=== PATIENT | female | born 1975 | race Caucasian/White ===

== ENCOUNTER 2019-11-17 12:08 | Emergency (ER) | payer BC, OTHER ==
[~2019-11-17] VITALS: Ht 170.2 cm; Wt 75.0 kg
--- NOTE | 2019-11-17 12:26 | ED Hip Pain/Injury ---
General Chief Complaint: Upper Extremity Stated Complaint: LEFT ARM INJ Nursing Triage Note: Pt amb to triage with c/o L wrist discomfort. 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 Pt reports intermittent numbness/tingling followed by sharp pain to L wrist. Pt displays ability to move L wrist and wiggle distal fingers. Cap refill <3 seconds with present radial pulse. Denies further injury. A&OX4. Source: patient Exam Limitations: no limitations History of Present Illness Date Seen by Provider: Nov 17, 2019 Time Seen by Provider: 12:25 Initial Comments To ER with left wrist pain after a fall when she slipped on wet grass 30 minutes prior to arrival. Timing/Duration: just prior to arrival Severity: moderate Location: other (left wrist) Method of Injury: fell Modifying Factors: Worse With Movement Allergies and Home Medications Allergies Coded Allergies: No Known Drug Allergies (Unverified , 11/17/19) Patient Home Medication List Home Medication List Reviewed: Yes Review of Systems Constitutional: see HPI EENTM: see HPI Respiratory: no symptoms reported Cardiovascular: no symptoms reported Genitourinary: no symptoms reported Musculoskeletal: see HPI Skin: no symptoms reported Psychiatric/Neurological: No Symptoms Reported Past Enjbkqz-Scrlmt-Hpdlot Hx Patient Social History Recent Foreign Travel: No Contact w/Someone Who Travel: No Recent Infectious Disease Expo: No Physical Exam Vital Signs Vital Signs - First Documented 11/17/19 12:15 Temp 36.9 Pulse 105 Resp 17 B/P (MAP) 144/95 (111) Pulse Ox 100 O2 Delivery Room Air Capillary Refill : Less Than 3 Seconds Height, Weight, BMI Height: '" Weight: lbs. oz. kg; 25.00 BMI Method: General Appearance: No Apparent Distress, WD/WN Neck: Full Range of Motion, Normal Inspection Respiratory: Normal Breath Sounds, No Accessory Muscle Use, No Respiratory Distress Gastrointestinal: Non Tender, Soft Extremity: Other (brisk capillary refill of the fingertips, there is pain without obvious deformity to the left wrist.) Neurologic/Psychiatric: Alert, Oriented x3 Skin: Normal Color, Warm/Dry Progress/Results/Core Measures Results/Orders My Orders Orders - BERNARDO STERLING APRN Hydrocodone/Apap 5/325 Tablet (Lortab 5 (11/17/19 12:30) Wrist, Left, 3 Views Or More (11/17/19 12:23) Forearm, Left, 2 Views (11/17/19 13:00) Medications Given in ED Current Medications Medications Dose Ordered Sig/Alice Route Start Time Stop Time Status Last Admin Dose Admin Acetaminophen/ Hydrocodone Bitart 1 tab ONCE ONCE PO 11/17/19 12:30 11/17/19 12:31 DC 11/17/19 12:28 1 TAB Vital Signs/I&O 11/17/19 12:15 Temp 36.9 Pulse 105 Resp 17 B/P (MAP) 144/95 (111) Pulse Ox 100 O2 Delivery Room Air Blood Pressure Mean: 111 Departure Communication (Admissions) She is able to supinate and pronate which would not support a diagnosis of radial ulnar dislocation Impression Primary Impression: Wrist sprain Qualified Codes: S63.502A - Unspecified sprain of left wrist, initial encounter Disposition: HOME, SELF-CARE Condition: Stable Departure-Patient Inst. Decision time for Depature: 12:45 Referrals: LEONARD HANDLEY DO (PCP) Primary Care Physician Patient Instructions: Wrist Sprain (DC) Add. Discharge Instructions: 1. Will splint as needed for comfort 2. Follow-up with your doctor this week as he may wish to refer you to orthopedics 3. Tylenol and pain control. If you have persistent pain into next week and MRI may be helpful to evaluate for a small fracture not seen on x-ray All discharge instructions reviewed with patient and/or family. Voiced understanding. BERNARDO STERLING APRN Nov 17, 2019 12:26
[2019-11-17] MEDS ORDERED: HYDROcodone/APAP 5 MG/325 MG (LORTAB) TAB PO ONE (12:30)
--- NOTE | 2019-11-17 12:55 | Diagnostic Imaging Report ---
INDICATION: Pain, injury. COMPARISON: None available. TECHNIQUE: Three radiographs of the left wrist dated November 17, 2019. FINDINGS: No acute fracture. The distal ulna is posteriorly positioned in relationship to the distal radius on the lateral radiograph. Carpal alignment is well maintained. Scapholunate distance is within normal limits. No suspicious radiopaque foreign body. IMPRESSION: Distal ulna is slightly posteriorly positioned in relationship to the distal radius. This may relate to subluxation of the distal radioulnar joint, though this may simply be positional in nature. Recommend correlation with physical examination and pain. Otherwise, unremarkable examination. Dictated by: Dictated on workstation # [id number]
--- NOTE | 2019-11-17 13:17 | Diagnostic Imaging Report ---
INDICATION: Fall. TIME OF EXAM: 1:10 p.m. FINDINGS: Two views of the left forearm were obtained. Alignment at the elbow and wrist appears normal. The radius and ulna appear to be intact. No fractures are seen. There is no dislocation. IMPRESSION: No acute bony abnormality is detected. Dictated by: Dictated on workstation # [id number]
[2019-11-17 13:30] VITALS: BP 144/95
--- OUTSIDE RECORDS SUMMARY | 2019-11-21 15:38 | XMS REPORT | Continuity of Care Document ---
Author Organization Unknown Address Unknown Phone Unavailable Allergies Active Description Code Type Severity Reaction Onset Reported/Identified Relationship to Patient Clinical Status Yes No Known Drug Allergies [id number] Drug Allergy Unknown N/A 11/17/2019 Medications There is no data. Problems Date Dx Coded Attending Type Code Diagnosis Diagnosed By 05/07/2015 LEONARD HANDLEY DO Ot 729.81 09/23/2015 LEONARD HANDLEY DO Ot 729.81 12/16/2018 LEONARD HANDLEY DO Ot 729.81 SWELLING OF LIMB 11/17/2019 LEONARD HANDLEY DO Ot 729.81 SWELLING OF LIMB Procedures There is no data. Results There is no data. Encounters ACCT No. Visit Date/Time Discharge Status Pt. Type Provider Facility Loc./Unit Complaint [id number] 11/17/2019 12:08:00 020 13:30:00 DIS Emergency BERNARDO STERLING APRN [facility] ER LEFT ARM INJ [id number] 04/06/2015 14:23:00 015 23:59:59 CLS Outpatient LEONARD HANDLEY DO [facility] RAD LT CLAVICLE SWO LLEN AND SOFT AND MUSY [id number] 11/25/2019 08:45:00 P EN Preadmit LEONARD HANDLEY DO [facility] RAD 1ST MAMMO, BASELINE
--- OUTSIDE RECORDS SUMMARY | 2019-11-21 15:38 | XMS REPORT ---
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) tissue disease (1 source.) Procedures No Information Immunizations No Information Results No Information Vital Signs No Information Interventions No Information Plan of Treatment No Information Goals No Information Social History No Information Functional Status No Information Mental Status No Information Encounters Encounter Normalized Encounter Encounter Diagnosis Care Provi liliana Organization Date Type 04-06-2015 Patient encounter no information no name (no phone) no organization name procedure (no phone) Medical Equipment No Information Payers No Information Additional Source Comments This clinical document has been generated using [employer] software that has been certified by the Office of the National Coordinator for Health Information Technology (ONC 15.99.04.3023.Diam.[id number]) and the National Committee for Greenhouse Technician (NCQA, as an eMeasure certified technology). FOR RECORDS PERTAINING TO PATIENTS WHO ARE OR HAVE BEEN ENROLLED IN A CHEMICAL D EPENDENCY/SUBSTANCE ABUSE PROGRAM, SOME INFORMATION MAY BE OMITTED. This clinica l summary was aggregated from multiple sources. Caution should be exercised in using it in the provision of clinical care. This summary normalizes information from multiple sources, and as a consequence, information in this document may ma terially change the coding, format and clinical context of patient data. In ethan tion, data may be omitted in some cases. CLINICAL DECISIONS SHOULD BE BASED ON T HE PRIMARY CLINICAL RECORDS. [employer] provides no warranty or guara ntee of the accuracy or completeness of information in this document.The followi ng information is based on time limited clinical information
== END 2019-11-17 13:30 | disposition home or self-care (01) ==
LOC: ER 12:08 → EDUNIT# 12:08 → ER 13:30
DX: S63.502A Unspecified sprain of left wrist, initial encounter (principal); W01.0XXA Fall on same level from slipping, tripping and stumbling without subsequent striking against object, initial encounter
CPT/HCPCS: 73090; 73110

== ENCOUNTER → 2019-11-25 | Outpatient (CLI) | payer OTHER ==
--- NOTE | 2019-11-25 09:40 | Diagnostic Imaging Report ---
INDICATION: Routine screening. No prior mammograms are available for comparison. This is a baseline study. 2-D and 3-D bilateral screening mammography was performed with a Computer Aided Detection (CAD) system. 3-D tomosynthesis was also performed and reviewed. FINDINGS: Both breasts are heterogeneously dense, limiting the sensitivity of mammography. No spiculated mass or malignant appearing microcalcifications are seen. There is a prominent density in the superior and outer right breast. This could represent prominent fibroglandular tissue versus enlarged cyst. Additional views are recommended. IMPRESSION: Right breast density. Additional views recommended for further evaluation. ACR BI-RADS Category 0: Incomplete. (Needs additional imaging evaluation). Result letter will be mailed to the patient. Note: At least 10% of breast cancer is not imaged by mammography. Dictated by: Dictated on workstation # [id number]
== END ==
LOC: RAD 08:29
PROVIDERS: ATTEND Family Medicine
DX: Z12.31 Encounter for screening mammogram for malignant neoplasm of breast (principal); R92.8 Other abnormal and inconclusive findings on diagnostic imaging of breast
CPT/HCPCS: 77067

== ENCOUNTER → 2019-12-07 | Outpatient (CLI) | payer OTHER ==
--- NOTE | 2019-12-07 13:29 | Diagnostic Imaging Report ---
INDICATION: Right breast density. Patient presents for additional views. COMPARISON: Correlation is made with the recent screening study from 11/25/2019. TECHNIQUE: Unilateral right 2D and 3D diagnostic mammography was performed including spot compression CC and ML views as well as a 90 degree lateral view. FINDINGS: There is some persistent density in the upper-outer right breast at posterior depth. This is approximately 8 to 10 cm from the nipple. No other abnormalities are seen. IMPRESSION: Persistent density in the upper outer right breast. While this could represent superimposed fibroglandular tissue, other etiologies cannot be excluded. Further evaluation with ultrasound is recommended and will be performed today. ACR BI-RADS Category 0: Incomplete. (Needs additional imaging evaluation). Result letter will be mailed to the patient. Note: At least 10% of breast cancer is not imaged by mammography. Dictated by: Dictated on workstation # [id number]
--- NOTE | 2019-12-07 16:11 | Diagnostic Imaging Report ---
INDICATION: Incomplete resolution of density with spot compression on earlier diagnostic views. Ultrasound was performed to exclude the possibility of an underlying mass. FINDINGS: Sonographic surveillance throughout the upper outer quadrant of the right breast in the region of questionable mammographic density reveals no solid or cystic mass. No ductal ectasia. No architectural distortion. IMPRESSION: Normal targeted right breast ultrasound. In light of the absence of true mass mammographically as well as a normal targeted ultrasound and assuming the absence of adverse clinical change, the patient could be returned to routine bilateral screening next due in 1 year. ACR BI-RADS Category 2: Benign findings. Dictated by: Dictated on workstation # [id number]
== END ==
LOC: RAD 12:50
PROVIDERS: ATTEND Family Medicine
DX: N63.11 Unspecified lump in the right breast, upper outer quadrant (principal)

== ENCOUNTER → 2020-11-29 | Outpatient (CLI) | payer OTHER ==
--- NOTE | 2020-11-29 14:12 | Diagnostic Imaging Report ---
INDICATION: PAIN IN LOWER BACK GETTING WORSE ONSET 1 YEAR TECHNIQUE: AP, Lateral and Spot imaging of the lumbar spine CORRELATION STUDY: None FINDINGS: There is some straightening of normal lumbar lordosis along with a very mild leftward curvature. Asymmetric disc space narrowing along the right aspect L2-L3 levels with asymmetric sclerosis and osteophytes measured on the right. This is at the concavity of the curvature. The lumbar vertebral body heights overall are maintained. No acute appearing compression deformity. The remaining disc spaces overall appear to be fairly well maintained as well. Sacroiliac joints are maintained and unremarkable. IMPRESSION: No radiographic evidence for acute bony abnormality of the lumbar spine. Mild leftward curvature lumbar spine with asymmetric disc space narrowing or reactive endplate sclerosis and osteophyte formation L2-L3 level on the right. Dictated by: Dictated on workstation # [id number]
== END ==
LOC: RAD 10:55
PROVIDERS: ATTEND Family Medicine
DX: M51.36 Other intervertebral disc degeneration, lumbar region (principal); M48.061 Spinal stenosis, lumbar region without neurogenic claudication; M41.86 Other forms of scoliosis, lumbar region; M25.78 Osteophyte, vertebrae
CPT/HCPCS: 72100

== ENCOUNTER → 2021-07-05 | Outpatient (CLI) | payer BC, OTHER ==
--- NOTE | 2021-07-05 12:07 | Diagnostic Imaging Report ---
Indication: Routine screening. Comparison is made with prior mammogram 11/25/2019. 2-D and 3-D bilateral screening mammography was performed with CAD. Both breasts are heterogeneously dense, limiting the sensitivity of mammography. There are benign calcifications in both breasts. The parenchymal pattern is stable. No mass or malignant-appearing microcalcifications are seen. Axillae are unremarkable. IMPRESSION: BI-RADS category 2. No mammographic features suspicious for malignancy are identified. ACR BI-RADS Category 2: Benign findings. Result letter will be mailed to the patient. Note: At least 10% of breast cancer is not imaged by mammography. Dictated by: Dictated on workstation # [id number]
== END ==
LOC: RAD 08:30
PROVIDERS: ATTEND Family Medicine
DX: Z12.31 Encounter for screening mammogram for malignant neoplasm of breast (principal)
CPT/HCPCS: 77063; 77067

== ENCOUNTER 2021-10-27 10:05 | Emergency (ER) | payer BC ==
[~2021-10-27] VITALS: Ht 170 cm; Wt 86.3 kg
[2021-10-27 10:25] LABS: BASOPHILS % (AUTO) 1 % (0-10); EOSINOPHILS # (AUTO) 0.2 10^3/uL (0.0-0.3); EOSINOPHILS % (AUTO) 2 % (0-10); HEMATOCRIT 44 % (35-52); HEMOGLOBIN 14.7 g/dL (11.5-16.0); LYMPHOCYTES # (AUTO) 2.3 10^3/uL (1.0-4.0); LYMPHOCYTES % (AUTO) 29 % (12-44); MEAN CORPUSCULAR HEMOGLOBIN 30 pg (25-34); MEAN CORPUSCULAR HGB CONC 33 g/dL (32-36); MEAN CORPUSCULAR VOLUME 91 fL (80-99); MEAN PLATELET VOLUME 8.9 fL (9.0-12.2); MONOCYTES # (AUTO) 0.9 10^3/uL (0.0-1.0); MONOCYTES % (AUTO) 11 % (0-12); NEUTROPHILS # (AUTO) 4.5 10^3/uL (1.8-7.8); NEUTROPHILS % (AUTO) 57 % (42-75); PLATELET COUNT 262 10^3/uL (130-400); WHITE BLOOD COUNT 7.9 10^3/uL (4.3-11.0)
[2021-10-27] MEDS ORDERED: ASPIRIN 81 MG CHEW (CHILDREN'S ASA) PO ONE (10:30)
[2021-10-27 10:37] LABS: ALBUMIN 4.3 GM/DL (3.2-4.5); POTASSIUM 4.3 MMOL/L (3.6-5.0)
[2021-10-27 10:39] LABS: CALCIUM 9.1 MG/DL (8.5-10.1); PROTHROMBIN TIME PATIENT 13.1 SEC (12.2-14.7)
[2021-10-27] MEDS: NITROGLYCERIN 0.4 MG SL TABS BTL 25'S SL PRN ×2 (10:39→11:20)
[2021-10-27 10:40] LABS: TOTAL PROTEIN 7.3 GM/DL (6.4-8.2)
[2021-10-27 10:42] LABS: BILIRUBIN,TOTAL 0.6 MG/DL (0.1-1.0)
[2021-10-27 10:43] LABS: CREATININE SERUM 0.71 MG/DL (0.60-1.30)
--- NOTE | 2021-10-27 11:23 | Diagnostic Imaging Report ---
CLINICAL INDICATION: Patient with complaints of chest pain. Onset 7:00 a.m. today. Patient feels like at times heart is racing. EXAM: Portable chest x-ray, upright view. COMPARISON: None. FINDINGS: Lungs/pleura: Lungs are clear. There is no pneumothorax. There is no pleural effusion. Mediastinum: Unremarkable. Pulmonary vasculature: Unremarkable. Heart: Unremarkable. Bones/extrathoracic soft tissue: Unremarkable. IMPRESSION: There is no radiographic evidence of acute cardiopulmonary process. Dictated by: Dictated on workstation # [id number]
[2021-10-27 11:26] LABS: FREE T4 (FREE THYROXINE) 1.21 NG/DL (0.70-1.48)
--- NOTE | 2021-10-27 13:41 | ED Chest Pain ---
General Chief Complaint: Chest Pain Stated Complaint: CHEST PAIN,SOB Nursing Triage Note: AMB TO ED FROM [facility] WITH C/O CHEST PAIN ONSET 7AM TODAY. FELT LIKE AT TIMES HEART RACING. HAS HAD 3 NEG COVID TEST. IN PAST WEEK. 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 oz. kg; 29.00 BMI Method: Progress/Results/Core Measures Results/Orders Lab Results Laboratory Tests Test 10/27/21 10:10 10/27/21 11:20 10/27/21 12:45 Range/Units White Blood Count 7.9 4.3-11.0 10^3/uL Red Blood Count 4.88 3.80-5.11 10^6/uL Hemoglobin 14.7 11.5-16.0 g/dL Hematocrit 44 35-52 % Mean Corpuscular Volume 91 80-99 fL Mean Corpuscular Hemoglobin 30 25-34 pg Mean Corpuscular Hemoglobin Concent 33 32-36 g/dL Red Cell Distribution Width 13.2 10.0-14.5 % Platelet Count 262 130-400 10^3/uL Mean Platelet Volume 8.9 L 9.0-12.2 fL Immature Granulocyte % (Auto) 0 % Neutrophils (%) (Auto) 57 42-75 % Lymphocytes (%) (Auto) 29 12-44 % Monocytes (%) (Auto) 11 0-12 % Eosinophils (%) (Auto) 2 0-10 % Basophils (%) (Auto) 1 0-10 % Neutrophils # (Auto) 4.5 1.8-7.8 10^3/uL Lymphocytes # (Auto) 2.3 1.0-4.0 10^3/uL Monocytes # (Auto) 0.9 0.0-1.0 10^3/uL Eosinophils # (Auto) 0.2 0.0-0.3 10^3/uL Basophils # (Auto) 0.0 0.0-0.1 10^3/uL Immature Granulocyte # (Auto) 0.0 0.0-0.1 10^3/uL Prothrombin Time 13.1 12.2-14.7 SEC INR Comment 1.0 0.8-1.4 Activated Partial Thromboplast Time 28 24-35 SEC Sodium Level 137 135-145 MMOL/L Potassium Level 4.3 3.6-5.0 MMOL/L Chloride Level 107 98-107 MMOL/L Carbon Dioxide Level 19 L 21-32 MMOL/L Anion Gap 11 5-14 MMOL/L Blood Urea Nitrogen 17 7-18 MG/DL Creatinine 0.71 0.60-1.30 MG/DL Estimat Glomerular Filtration Rate 106 BUN/Creatinine Ratio 24 Glucose Level 110 H 70-105 MG/DL Calcium Level 9.1 8.5-10.1 MG/DL Corrected Calcium 8.9 8.5-10.1 MG/DL Magnesium Level 2.0 1.6-2.4 MG/DL Total Bilirubin 0.6 0.1-1.0 MG/DL Aspartate Amino Transf (AST/SGOT) 13 5-34 U/L Alanine Aminotransferase (ALT/SGPT) 17 0-55 U/L Alkaline Phosphatase 77 40-136 U/L Myoglobin 29.1 10.0-92.0 NG/ML Troponin I < 0.028 < 0.028 <0.028 NG/ML C-Reactive Protein High Sensitivity 0.29 0.00-0.50 MG/DL Total Protein 7.3 6.4-8.2 GM/DL Albumin 4.3 3.2-4.5 GM/DL Thyroid Stimulating Hormone (TSH) 0.40 0.35-4.94 UIU/ML Free Thyroxine 1.21 0.70-1.48 NG/DL Serum Test, Qualitative NEGATIVE NEGATIVE Influenza Type A (RT-PCR) Not Detected Not Detecte Influenza Type B (RT-PCR) Not Detected Not Detecte SARS-CoV-2 RNA (RT-PCR) Not Detected Not Detecte My Orders Orders - MAINE PUENTE MD Cbc With Automated Diff (10/27/21 10:14) Magnesium (10/27/21 10:14) Chest 1 View, Ap/Pa Only (10/27/21 10:14) Ekg Tracing (10/27/21 10:14) Comprehensive Metabolic Panel (10/27/21 10:14) Myoglobin Serum (10/27/21 10:14) Protime With Inr (10/27/21 10:14) Partial Thromboplastin Time (10/27/21 10:14) O2 (10/27/21 10:14) Monitor-Rhythm Ecg Trace Only (10/27/21 10:14) Lipid Panel (10/28/21 06:00) Ed Iv/Invasive Line Start (10/27/21 10:14) Troponin I [place] (10/27/21 10:14) Hs C Reactive Protein (10/27/21 10:14) Covid 19 Inhouse Test (10/27/21 10:14) Influenza A And B By Pcr (10/27/21 10:14) Hcg,Qualitative Serum (10/27/21 10:14) Nitroglycerin 0.4 Mg Btl 25's (Nitrostat (10/27/21 10:30) Aspirin Chewable Tablet (Baby Aspirin Ch (10/27/21 10:30) Thyroid Stimulating Hormone (10/27/21 10:33) Free T4 (Free Thyroxine) (10/27/21 10:33) Troponin I [place] (10/27/21 12:45) Medications Given in ED Current Medications Medications Dose Ordered Sig/Alice Route Start Time Stop Time Status Last Admin Dose Admin Aspirin 324 mg ONCE ONCE PO 10/27/21 10:30 10/27/21 10:31 DC 10/27/21 10:38 324 MG Nitroglycerin 0.4 mg UD PRN SL 10/27/21 10:30 10/27/21 11:20 0.4 MG Vital Signs/I&O 10/27/21 10/27/21 10:10 11:39 Temp 36.0 Pulse 92 82 Resp 18 18 B/P (MAP) 142/70 (94) 119/67 Pulse Ox 99 96 O2 Delivery Room Air Room Air Blood Pressure Mean: 84 Departure Impression Primary Impression: Chest pain Qualified Codes: R07.9 - Chest pain, unspecified Additional Impression: Near syncope Disposition: 01 HOME, SELF-CARE Condition: Improved Departure-Patient Inst. Decision time for Depature: 13:39 Referrals: LEONARD HANDLEY DO (PCP/Family) Primary Care Physician ARTURO COON MD [employer] SANJUANITA SHELTON MD, DAVID L JR, MD Patient Instructions: Chest Pain, Near Fainting (DC) Add. Discharge Instructions: Drink plenty of clear liquids to stay well-hydrated. Take aspirin 81 mg daily until instructed otherwise. Although no serious medical problems were identified in your work-up in the emergency room, your work-up is not complete. You need to discuss your lightheadedness and chest pain with your primary care provider and seek referral to a intermediate manager for further evaluation. You may get a referral through Dr. Handley's office or contact one of the cardiologists below. Work toward stopping smoking. Return to the ER if you have recurrent episodes of chest pain or other worsening symptoms. All discharge instructions reviewed with patient and/or family. Voiced understanding. Copy Copies To 1: LEONARD HANDLEY JOSHUA T MD Oct 27, 2021 13:41
[2021-10-27 13:50] VITALS: BP 133/68
== END 2021-10-27 13:59 | disposition home or self-care (01) ==
LOC: EDUNIT# 10:05 → ER 10:09
DX: R07.9 Chest pain, unspecified (principal); R55 Syncope and collapse; Z72.0 Tobacco use; Z20.822 Contact with and (suspected) exposure to COVID-19
CPT/HCPCS: 36415; 71045; 80053; 83735; 83874; 84439; 84443; 84484; 84703; 85025; 85610; 85730; 86141; 87636; 93005; 93041

== ENCOUNTER → 2021-11-04 | Outpatient (CLI) | payer BC | LOC: CARD 13:30 | PROVIDERS: ATTEND Internal Medicine Cardiovascular Disease | DX: I35.1 Nonrheumatic aortic (valve) insufficiency (principal); I49.9 Cardiac arrhythmia, unspecified; I25.10 Atherosclerotic heart disease of native coronary artery without angina pectoris | CPT/HCPCS: 93225; 93226; 93306 ==

== ENCOUNTER → 2021-11-27 | Outpatient (CLI) | payer BC ==
[~2021-11-27] VITALS: Ht 167 cm; Wt 85.0 kg
[~2021-11-27] MED LIST: CATHETER FLUSH 10 ML SYR IVP PRN
[2021-11-27 09:25] VITALS: BP 115/80
--- NOTE | 2021-12-02 08:34 | Cardiology Stress Test Report ---
Stress Test Report Date of Procedure/Referring: Date of Procedure: Nov 27, 2021 PCP Sanjuanita Rubio MD Admitting Physician Eduardo Condon DO Indications: HTN Baseline Heart Rate: 78 Baseline Blood Pressure: Blood Pressure Systolic: 115 Blood Pressure Diastolic: 80 Vital Signs Date Time Temp Pulse Resp B/P (MAP) Pulse Ox O2 Delivery O2 Flow Rate FiO2 11/27/21 09:25 90 20 115/80 (92) 97 Room Air Baseline Vital Signs Vital Signs Date Time Temp Pulse Resp B/P (MAP) Pulse Ox O2 Delivery O2 Flow Rate FiO2 11/27/21 09:25 90 20 115/80 (92) 97 Room Air Baseline EKG: Baseline EKG: NSR Summary: After explaining the procedure and details to the patient, she signed the consent and was brought to the stress nuclear laboratory. Patient exercised on standard Ismael protocol, EKG, heart rate and blood pressure were monitored continuously, resting and stress doses of radio tracer were injected, imaging was acquired and reviewed in the short axis, horizontal long axis and vertical long axis views Patient was able to exercise for a total of 163 minutes on Ismael protocol, METs 4.6 Maximum heart rate 163 Maximum blood pressure 202/87 Stress EKG, Minimal nondiagnostic changes Recovery EKG, Return to baseline TID: 0.99 SSS: 2 SDS: 2 EF: 64 Conclusion: 1. Poor exercise tolerance for a total of 3 minutes on standard Ismael protocol, 4.6 METS achieving 93% of maximum expected heart rate. 2. Appropriate heart rate response to exercise with hypertensive response to exercise with peak blood pressure 202/87 return to baseline during recovery 3. Minimal nondiagnostic EKG changes with exercise return to baseline during recovery 4. No significant ischemia or infarction on SPECT images 5. Normal left ventricular size, ejection fraction 64% SANJUANITA RUBIO MD Dec 02, 2021 08:34
== END ==
LOC: CARD 08:03
PROVIDERS: ATTEND Internal Medicine Cardiovascular Disease
DX: I25.10 Atherosclerotic heart disease of native coronary artery without angina pectoris (principal); I10 Essential (primary) hypertension
CPT/HCPCS: 78452; 93017; A9502

== ENCOUNTER 2022-09-11 08:23 | Outpatient (RCR) | payer BC | END 2022-09-13 | PROVIDERS: ATTEND Anesthesiology Pain Medicine | DX: M99.33 Osseous stenosis of neural canal of lumbar region (principal) ==

== ENCOUNTER 2022-10-10 09:00 | Outpatient (RCR) | payer BC | END 2022-10-14 | disposition home or self-care (01) | PROVIDERS: ATTEND Anesthesiology Pain Medicine | DX: M99.33 Osseous stenosis of neural canal of lumbar region (principal); Z74.09 Other reduced mobility ==

== ENCOUNTER 2022-10-29 12:46 | Outpatient (RCR) | payer BC | END 2022-11-11 | disposition home or self-care (01) | PROVIDERS: ATTEND Anesthesiology Pain Medicine | DX: M99.33 Osseous stenosis of neural canal of lumbar region (principal); Z74.09 Other reduced mobility ==